=== PATIENT | female | born 1980 | race Caucasian/White ===

== ENCOUNTER 2021-03-07 03:10 | Emergency (ER) | payer OTHER ==
[2021-03-07 03:28] VITALS: BP 158/92; PULSE 100; RESP 18; TEMP 97.9
[2021-03-07 04:15] LABS: Amphetamine Screen,Urine Not Detected (NotDetected); Barbiturate Screen,Urine Not Detected (NotDetected); Benzodiazepines Screen,Urine Not Detected (NotDetected); Cocaine Screen,Urine Not Detected (NotDetected); Methadone Screen, Urine Not Detected (NotDetected); Opiate Screen,Urine Not Detected (NotDetected); Oxycodone Screen, Urine Not Detected (NotDetected); Phencyclidine Screen,Urine Not Detected (NotDetected); Tricyclic Antidepressant,Urine Not Detected (NotDetected); Urn Cannabinoid Scrn Detected (NotDetected)
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
[2021-03-07] MEDS ORDERED: ONDANSETRON ODT 4 MG TAB PO STA (04:41)
[2021-03-07] MEDS: LORazepam 1 MG TAB PO STA ×2 (04:46→04:50)
[2021-03-07] MEDS ORDERED: LORazepam 1 MG TAB PO STA ×2 (08:43→13:02)
== END 2021-03-07 13:22 | disposition other institution (70) ==
LOC: EC 03:10
DX: F41.9 Anxiety disorder, unspecified (principal); F31.9 Bipolar disorder, unspecified; F12.90 Cannabis use, unspecified, uncomplicated; F17.200 Nicotine dependence, unspecified, uncomplicated; Z20.822 Contact with and (suspected) exposure to COVID-19
CPT/HCPCS: 80306; 81025; 82075; 87635; 99284